=== PATIENT | male | born 1975 | race Two or more races ===

== ENCOUNTER 2023-04-07 16:01 | Inpatient (IN) | payer OTHER ==
[~2023-04-07] VITALS: Ht 185.4 cm; Wt 105.2 kg
[2023-04-07] MEDS ORDERED: HYDROmorphone HCL 2 MG/ML VL/or syr IV ONE ×2 (17:30→18:30)
[2023-04-07] MEDS ORDERED: PROMETHAZINE HCL 25 MG/ML 1ML IV ONE (17:30)
[2023-04-07] MEDS ORDERED: SODIUM CHLORIDE 0.9% 1,000 ML IV ONE (18:30)
[2023-04-07] MEDS ORDERED: METOCLOPRAMIDE HCL 5MG/ml INJ 2ml VIAL IV ONE (18:30)
[2023-04-07 18:45] VITALS: PULSE 78; RESP 20; O2SAT 97
[2023-04-07 19:14] LABS: Basophils # (auto) 0 10 ^3/uL (0-0.2); Basophils % (auto) 0.2 % (0.0-2.0); Eosinophils # (auto) 0.1 10 ^3/uL (0-0.8); Eosinophils % (auto) 1.4 % (0.0-7.0); Hematocrit 47.7 % (41.0-53.0); Hemoglobin 15.6 g/dL (13.5-17.5); Lymphocytes # (auto) 1.3 10 ^3/uL (0.4-5.4); Lymphocytes % (auto) 15.6 % (10.0-50.0); Mean Corpuscular Hemoglobin 29.7 pg (28.0-32.0); Mean Corpuscular Hgb Conc. 32.8 g/dL (32.0-36.0); Mean Corpuscular Volume 90.6 fL (80.0-100.0); Monocytes # (auto) 0.7 10 ^3/uL (0-1.3); Monocytes % (auto) 7.6 % (0.0-12.0); Neutrophils # (auto) 6.5 10 ^3/uL (1.6-8.6); Neutrophils % (auto) 75.2 % (37.0-80.0); Red Blood Cells 5.27 10^6/uL (4.5-5.90); Red Cell Distribution Width 13.8 % (11.8-14.3); White Blood Cell 8.6 10^3/uL (4.4-10.8)
[2023-04-07 19:31] LABS: INR 1.11 (0.9-1.15); Partial Thromboplastin Time 32.3 SEC (24.5-34.5); Prothrombin Time 11.6 sec (9.3-11.8)
[2023-04-07 19:37] VITALS: PULSE 68; RESP 18; O2SAT 95
[2023-04-07 19:42] LABS: Alanine Aminotransferase 29 U/L (7-40); Albumin 4.5 g/dL (3.2-4.8); Alkaline Phosphatase 52 U/L (46-116); Anion Gap 8 (5-15); Aspartate Aminotransferase 35 U/L (13-40); BUN/Creatinine Ratio 20.2 (10.0-20.0); Blood Urea Nitrogen 22 mg/dL (9-23); Carbon Dioxide 22 mmol/L (20-30); Chloride 107 mmol/L (98-107); Glucose 86 mg/dL (74-106); Magnesium 2.2 mg/dL (1.6-2.6); Potassium 4.5 mmol/L (3.5-5.1); Sodium 137 mmol/L (136-145); Total Protein 7.1 g/dL (5.7-8.2)
[2023-04-07 19:43] LABS: Bilirubin, Total 0.9 mg/dL (0.2-1.0)
[2023-04-07] MEDS ORDERED: NITROGLYCERIN 0.4 MG SL TAB SL PRN (21:45)
[2023-04-07] MEDS ORDERED: MORPHINE SULFATE INJ 2 MG/ml SYRG IV PRN (21:45)
[2023-04-08] MEDS: MORPHINE SULFATE 4 MG/ML SYR/VIAL IV SCH ×5 (01:02→16:21)
[2023-04-08 05:00] VITALS: BP 126/76; PULSE 60; RESP 16; TEMP 98; O2SAT 94
[2023-04-08 08:00] VITALS: RESP 18; O2SAT 100
[2023-04-08 09:00] VITALS: BP 121/77; PULSE 78; RESP 16; TEMP 97.9; O2SAT 100
[2023-04-08] MEDS: ENOXAPARIN SOD 40 MG/0.4 ML SYRINGE SC SCH (09:33)
[2023-04-08 12:51] VITALS: BP 136/83; PULSE 84; RESP 19; TEMP 97.9; O2SAT 91
[2023-04-08 14:14] LABS: Urine Bacteria NONE SEEN /hpf (None Seen); Urine Blood Negative /uL (Negative); Urine Clarity Clear (Clear); Urine Color Yellow (Yellow); Urine Protein, UAD Negative (Negative); Urine Urobilinogen Normal (Negative); Urine WBC <1 /hpf (0 - 3)
[2023-04-08 17:00] VITALS: BP 126/84; PULSE 84; RESP 19; TEMP 97.8; O2SAT 96
[2023-04-08] MEDS ORDERED: HYDROcodone-ACET 10/325MG TAB PO PRN (18:15)
[2023-04-08] MEDS: MORPHINE SULFATE 4 MG/ML SYR/VIAL IV PRN (20:03)
[2023-04-08] MEDS: SODIUM CHLORIDE 0.9% 1,000 ML IV SCH (20:08)
[2023-04-08 22:00] VITALS: BP 120/76; PULSE 86; RESP 16; TEMP 98.2; O2SAT 94
[2023-04-09] MEDS: MORPHINE SULFATE 4 MG/ML SYR/VIAL IV PRN (03:48)
[2023-04-09] MEDS: SODIUM CHLORIDE 0.9% 1,000 ML IV SCH ×3 (04:06→18:15)
[2023-04-09 05:00] VITALS: BP 128/75; PULSE 78; RESP 20; TEMP 97.9; O2SAT 96
[2023-04-09] MEDS ORDERED: BUPIVACAINE 0.5% P/F INJ 10 ML VIAL ONE (07:01)
[2023-04-09] MEDS ORDERED: SUCCINYLCHOLINE CHLORIDE 20 MG/ML 10ML VIAL IV ONE (07:02)
[2023-04-09] MEDS ORDERED: fentaNYL CITRATE 100 MCG/2 ML VL ONE (07:09)
[2023-04-09] MEDS ORDERED: ONDANSETRON HCL 4 MG/2 ML VIAL ONE (07:10)
[2023-04-09] MEDS ORDERED: SODIUM CHLORIDE LOCK 10 ML ONE (07:10)
[2023-04-09] MEDS ORDERED: MIDAZOLAM HCL 2MG/2ML 2ml VIAL (1mg/ml) ONE (07:10)
[2023-04-09] MEDS ORDERED: DexAMETHasone SOD PHOS 10MG/1ML VIAL INJ ONE (07:10)
[2023-04-09] MEDS ORDERED: PROPOFOL 10 MG/ML 20 ML IV ONE ×2 (07:10→08:32)
[2023-04-09] MEDS ORDERED: EPINEPHrine HCL 1 MG/1 ML AMP ONE (07:11)
[2023-04-09] MEDS ORDERED: KETAMINE 50mg/ML 1ml syringe IV ONE (07:30)
[2023-04-09] MEDS ORDERED: ceFAZolin 1GM/50ML 100 ML IV ONE (07:38)
[2023-04-09] MEDS ORDERED: HYDROmorphone HCL 2 MG/ML VL/or syr IV PRN ×2 (07:45)
[2023-04-09] MEDS ORDERED: MORPHINE SULFATE INJ 2 MG/ml SYRG IV PRN (07:45)
[2023-04-09] MEDS ORDERED: METOCLOPRAMIDE HCL 5MG/ml INJ 2ml VIAL IV PRN (07:45)
[2023-04-09 09:08] VITALS: O2SAT 94
[2023-04-09] MEDS: ENOXAPARIN SOD 40 MG/0.4 ML SYRINGE SC SCH (10:00)
[2023-04-09] MEDS: HYDROcodone-ACET 10/325MG TAB PO PRN ×3 (12:21→20:31)
[2023-04-09 13:00] VITALS: BP 134/69; PULSE 81; RESP 14; TEMP 97.2; O2SAT 98
[2023-04-09] MEDS ORDERED: ceFAZolin 2 GM/D5W100ml 100 ML IV SCH (14:00)
[2023-04-09] MEDS: SODIUM CHLOR 0.9% PF (SALINE LOCK) 10ML VIAL/SYR IV SCH ×2 (14:54→22:00)
[2023-04-09 16:54] VITALS: BP 127/82; PULSE 72; RESP 14; TEMP 97.2; O2SAT 98
[2023-04-09 20:00] VITALS: PULSE 89; RESP 18; O2SAT 90
[2023-04-09] MEDS ORDERED: ceFAZolin 1GM/50ML 50 ML IV ONE ×2 (22:30→23:00)
[2023-04-09 23:35] VITALS: BP 137/82; PULSE 89; RESP 18; TEMP 97.8; O2SAT 90
[2023-04-10] MEDS: HYDROcodone-ACET 10/325MG TAB PO PRN ×6 (00:34→21:21)
[2023-04-10] MEDS: SODIUM CHLORIDE 0.9% 1,000 ML IV SCH ×3 (02:15→18:15)
[2023-04-10 04:51] VITALS: BP 131/95; PULSE 82; RESP 16; TEMP 97.6; O2SAT 94
[2023-04-10] MEDS: SODIUM CHLOR 0.9% PF (SALINE LOCK) 10ML VIAL/SYR IV SCH ×3 (05:50→21:22)
[2023-04-10 06:57] LABS: Basophils # (auto) 0 10 ^3/uL (0-0.2); Basophils % (auto) 0.2 % (0.0-2.0); Eosinophils # (auto) 0.1 10 ^3/uL (0-0.8); Hematocrit 40.4 % (41.0-53.0); Hemoglobin 13.4 g/dL (13.5-17.5); Lymphocytes % (auto) 10.6 % (10.0-50.0); Mean Corpuscular Hemoglobin 29.8 pg (28.0-32.0); Mean Corpuscular Hgb Conc. 33.1 g/dL (32.0-36.0); Monocytes # (auto) 0.7 10 ^3/uL (0-1.3); Monocytes % (auto) 6.8 % (0.0-12.0); Neutrophils # (auto) 7.9 10 ^3/uL (1.6-8.6); Neutrophils % (auto) 81.4 % (37.0-80.0); Red Blood Cells 4.48 10^6/uL (4.5-5.90); Red Cell Distribution Width 13.7 % (11.8-14.3); White Blood Cell 9.8 10^3/uL (4.4-10.8)
[2023-04-10 07:06] LABS: Anion Gap 8 (5-15); Carbon Dioxide 24 mmol/L (20-30); Chloride 107 mmol/L (98-107); Potassium 4.4 mmol/L (3.5-5.1); Sodium 139 mmol/L (136-145)
[2023-04-10 07:12] LABS: BUN/Creatinine Ratio 11.1 (10.0-20.0); Blood Urea Nitrogen 11 mg/dL (9-23); Glucose 97 mg/dL (74-106)
[2023-04-10] MEDS: LACTATED RINGER'S 1,000 ML IV SCH ×3 (08:00→17:15)
[2023-04-10 08:35] VITALS: BP 124/79; PULSE 68; RESP 19; TEMP 97.4; O2SAT 99
[2023-04-10] MEDS: ENOXAPARIN SOD 40 MG/0.4 ML SYRINGE SC SCH (08:58)
[2023-04-10 12:40] VITALS: BP 122/74; PULSE 69; RESP 19; TEMP 98.1; O2SAT 93
[2023-04-10 16:35] VITALS: BP 137/86; PULSE 68; RESP 21; TEMP 97.6; O2SAT 96
[2023-04-10 20:00] VITALS: PULSE 65; RESP 22; O2SAT 90
[2023-04-10 20:40] VITALS: BP 123/76; PULSE 65; RESP 22; TEMP 98.2; O2SAT 90
[2023-04-11] VITALS (7 sets, daily range): BP systolic 110–131; BP diastolic 61–77; PULSE 68–81; RESP 17–22; TEMP 97.6–99.8; O2SAT 91–99
[2023-04-11] MEDS: LACTATED RINGER'S 1,000 ML IV SCH ×3 (01:15→17:15)
[2023-04-11] MEDS: HYDROcodone-ACET 10/325MG TAB PO PRN ×4 (01:22→13:32)
[2023-04-11] MEDS: SODIUM CHLORIDE 0.9% 1,000 ML IV SCH ×3 (02:15→16:42)
[2023-04-11] MEDS: SODIUM CHLOR 0.9% PF (SALINE LOCK) 10ML VIAL/SYR IV SCH ×3 (05:44→21:37)
[2023-04-11] MEDS: ENOXAPARIN SOD 40 MG/0.4 ML SYRINGE SC SCH (09:46)
[2023-04-12] MEDS: LACTATED RINGER'S 1,000 ML IV SCH ×3 (00:34→16:22)
[2023-04-12] MEDS: HYDROcodone-ACET 10/325MG TAB PO PRN ×5 (03:31→22:14)
[2023-04-12] MEDS: SODIUM CHLORIDE 0.9% 1,000 ML IV SCH ×4 (04:50→17:11)
[2023-04-12 05:00] VITALS: BP 108/59; PULSE 111; RESP 18; TEMP 99; O2SAT 97
[2023-04-12] MEDS: SODIUM CHLOR 0.9% PF (SALINE LOCK) 10ML VIAL/SYR IV SCH ×3 (05:20→21:39)
[2023-04-12 08:00] VITALS: RESP 20
[2023-04-12] MEDS: ENOXAPARIN SOD 40 MG/0.4 ML SYRINGE SC SCH (08:03)
[2023-04-12 09:24] VITALS: BP 104/64; PULSE 74; RESP 20; TEMP 98.1; O2SAT 96
[2023-04-12 12:28] VITALS: BP 116/70; PULSE 78; RESP 20; TEMP 98; O2SAT 93
[2023-04-12 16:49] VITALS: BP 109/68; PULSE 84; RESP 20; TEMP 97.9; O2SAT 92
[2023-04-13] MEDS: LACTATED RINGER'S 1,000 ML IV SCH ×3 (01:15→17:15)
[2023-04-13] MEDS: HYDROcodone-ACET 10/325MG TAB PO PRN ×4 (02:57→17:57)
[2023-04-13 05:00] VITALS: BP 126/81; PULSE 77; RESP 20; TEMP 98.2; O2SAT 96
[2023-04-13] MEDS: SODIUM CHLORIDE 0.9% 1,000 ML IV SCH ×3 (06:05→18:15)
[2023-04-13] MEDS: SODIUM CHLOR 0.9% PF (SALINE LOCK) 10ML VIAL/SYR IV SCH ×2 (06:05→13:29)
[2023-04-13 08:00] VITALS: RESP 20
[2023-04-13 08:20] VITALS: BP 116/76; PULSE 68; RESP 18; TEMP 97.5; O2SAT 99
[2023-04-13] MEDS: ENOXAPARIN SOD 40 MG/0.4 ML SYRINGE SC SCH (09:14)
[2023-04-13] MEDS ORDERED: SERTRALINE HCL 50 MG TAB PO SCH (10:00)
[2023-04-13 12:35] VITALS: BP 112/71; PULSE 64; RESP 18; TEMP 98.1; O2SAT 95
[2023-04-13 16:10] VITALS: BP 121/80; PULSE 69; TEMP 97.9; O2SAT 96
== END 2023-04-13 21:20 | DRG 482 ==
LOC: ER 16:01 → OVERFLOW 21:37 → EEVIPCON 21:37 → WEST WING 23:45
PROVIDERS: ADMIT Internal Medicine; ATTEND Internal Medicine
PROC: BQ14ZZZ Fluoroscopy of Left Femur (ICD-10-PCS; 2023-04-09)
PROC: 0QS734Z Reposition Left Upper Femur with Internal Fixation Device, Percutaneous Approach (ICD-10-PCS; principal; 2023-04-09 07:41)
DX: S72.002A Fracture of unspecified part of neck of left femur, initial encounter for closed fracture (principal); W06.XXXA Fall from bed, initial encounter; S02.2XXA Fracture of nasal bones, initial encounter for closed fracture; F43.10 Post-traumatic stress disorder, unspecified; Z79.899 Other long term (current) drug therapy; Z82.49 Family history of ischemic heart disease and other diseases of the circulatory system; Z82.5 Family history of asthma and other chronic lower respiratory diseases; Y93.84 Activity, sleeping; Y92.149 Unspecified place in prison as the place of occurrence of the external cause; Y99.8 Other external cause status; E66.9 Obesity, unspecified; Z68.33 Body mass index [BMI] 33.0-33.9, adult
CPT/HCPCS: 36415; 70160; 70450; 70486; 71045; 73502; 80048; 80053; 81001; 83735; 84484; 85025; 85610; 85730; 93005; 96361; 96374; 96375; 97110; 97116; 97163; G0378; J0171; J0330; J0690; J1100; J2250; J2405; J2704; J3490